=== PATIENT | female | born 1975 ===

== ENCOUNTER 2020-04-07 07:46 | Inpatient (IN) ==
[2020-04-07] MEDS ORDERED: guaiFENesin 100 MG/5 ML SYRUP PO PRN (12:28)
[2020-04-07] MEDS ORDERED: SUMAtriptan SUCCINATE 50 MG TABLET PO PRN (12:30)
[2020-04-07] MEDS ORDERED: MECLIZINE HCL 12.5 MG TABLET PO PRN (12:30)
[2020-04-07] MEDS ORDERED: HALOPERIDOL 1 MG TABLET PO PRN (12:30)
[2020-04-07] MEDS ORDERED: WARFARIN SODIUM 1 MG TABLET PO SCH ×2 (12:30→17:00)
[2020-04-07] MEDS ORDERED: ACETAMINOPHEN 325 MG TABLET PO PRN (12:30)
[2020-04-07] MEDS ORDERED: AZITHROMYCIN 500 MG in DEXTROSE 5 % IN WATER 250 ML IV ONE ×2 (12:36)
[2020-04-07] MEDS ORDERED: WARFARIN SODIUM 10 MG TABLET PO SCH ×2 (12:45→17:00)
--- NOTE | 2020-04-07 13:02 | HP ---
Chief Complaint - Chief Complaint Date of Service: 04/07/20 Time of Service: 12:45 Chief Complaint: I've had cough and shortness of breath for more than a week. History of Present Illness: 45-year-old female with past medical history of morbid obesity, hypertension, CAD, bipolar disorder, depression, migraine headache, bronchial asthma, multiple pulmonary embolisms, anxiety disorder, restless leg syndrome, and BPPV was transferred to our ER from [facility] for evaluation and treatment of COVID 19 infection and hypoxia. Patient reports that last she developed shortness of breath and chest pain that made it difficult to breathe a day or 2 later she developed a persistent productive cough and her shortness of breath worsened. Patient symptoms progressively got worse making activities of daily living difficult to carry out. She went to the ER at [facility] and was diagnosed with COVID-19 bronchitis and placed on oxygen due to hypoxia. Patient met criteria for admission however they had no beds available for her so she was transferred to our institution. She denies having any fever or chills and says the majority of her symptoms is respiratory in nature. Her other complaint was altered taste, she says food has not tasted same since becoming ill which is characteristic of his virus. Medical History (Last Updated 04/07/20 @ 10:51 by Felicity Castro RN) Acute costochondritis Anemia Anxiety disorder Asthma Dominguez's palsy Benign intracranial hypertension Benign paroxysmal positional vertigo Bipolar 1 disorder Borderline personality disorder CVA (cerebral vascular accident) Carpal tunnel syndrome decompressed Chronic knee pain Closed fracture of wrist 2014 Common migraine Depression with suicidal ideation Dizziness Foot fracture, right GERD (gastroesophageal reflux disease) Generalized weakness Headache History of transesophageal echocardiography (BLAZE) 06/02/2017 Hypercholesteremia Hypothyroid Incontinence Menstrual disorder Moderate major depression Morbid obesity Neurodermatitis Normal stress echocardiography with dobutamine PCP abuse Pap smear abnormality of cervix 03/16/2015 Pulmonary embolism Restless leg syndrome Right wrist fracture Sleep apnea Sleep disturbance, unspecified Somatization disorder Surgical History: Surgical History (Last Updated 04/07/20 @ 10:51 by Felicity Castro RN) H/O cystoscopy 10/22/2016 H/O dilation and curettage 07/12/2015 H/O esophagogastroduodenoscopy 2018 History of open reduction and internal fixation (ORIF) procedure 09/01/19 right toe Hx of cholecystectomy Hx of tonsillectomy S/P endometrial ablation 07/12/2015 Family History: Family History (Last Updated 04/07/20 @ 10:54 by Felicity Castro RN) Mother Myocardial infarction Patient's mother is Diabetes type 2, controlled Glaucoma Father Pancreatic cancer Patient's father is CVA (cerebral vascular accident) Sister Lupus Substance abuse Alcohol abuse Diabetes type 2, controlled Brother Substance abuse Alcohol abuse Peds Patient Hx - Developmental: No Pertinent Hx Peds Patient Hx - Medical: No Pertinent Hx Peds Patient Hx - Cardiac/Respiratory: No Pertinent Hx Peds Patient Hx - Surgical: No Surgical History Patient History - Cancer: No Hx of Cancer Review Of Systems (GEN) - Review of Systems Generalized/Overall Review: Present: Fatigue EENTM: Present: Other - Altered taste Respiratory: Present: Cough, Shortness of Breath Cardiac: Present: No Symptoms Reported Abdominal: Present: No Symptoms Reported Genitourinary: Present: No Symptoms Reported Musculoskeletal: Present: No Symptoms Reported Neurological: Present: No Symptoms Reported Skin: Present: No Symptoms Reported Endocrine: Present: No Symptoms Reported Allergies/Adverse Reactions: Allergies Allergy/AdvReac Type Severity Reaction Status Date / Time ibuprofen Allergy Severe throat Verified 04/07/20 09:29 swelling bee venom protein (honey bee) Allergy Intermediate Swelling Verified 04/07/20 10:55 (Other) penicillin G Allergy Intermediate rash & Verified 04/07/20 09:29 swelling pineapple Allergy Intermediate Swelling Verified 04/07/20 10:55 (Other) rice Allergy Intermediate Swelling Verified 04/07/20 10:55 (Other) rizatriptan [From Maxalt] Allergy Intermediate Swelling Verified 04/07/20 10:55 (Other) aripiprazole [From Abilify] AdvReac Severe can't move Verified 04/07/20 09:29 doxycycline AdvReac Intermediate nausea Verified 04/07/20 09:29 vomiting dizziness see things Home Medications: HOME MEDICATIONS Acetaminophen 650 mg PO TID PRN 04/07/20 [Last Taken Unknown] Amitriptyline HCl [Elavil] 50 mg PO DAILY 04/07/20 [Last Taken Unknown] Aspirin [Aspirin EC] 325 mg PO DAILY 04/07/20 [Last Taken Unknown] Atorvastatin Calcium 40 mg PO DAILY 04/07/20 [Last Taken Unknown] Cholecalciferol (Vitamin D3) [Vitamin D3] 50,000 unit PO Q7D 04/07/20 [Last Taken Unknown] Dexamethasone [Decadron] 6 mg PO DAILY 04/07/20 [Last Taken Unknown] Furosemide 20 mg PO DAILY 04/07/20 [Last Taken Unknown] Gabapentin 800 mg PO TID 04/07/20 [Last Taken Unknown] Haloperidol 1 mg PO TID PRN 04/07/20 [Last Taken Unknown] Isosorbide Mononitrate [Imdur] 15 mg PO DAILY 04/07/20 [Last Taken Unknown] Levothyroxine Sodium [Synthroid] 175 mcg PO DAILY 04/07/20 [Last Taken Unknown] Loratadine [Claritin] 10 mg PO DAILY 04/07/20 [Last Taken Unknown] Meclizine HCl [Antivert] 12.5 mg PO TID PRN 04/07/20 [Last Taken Unknown] Montelukast Sodium [Singulair] 10 mg PO DAILY 04/07/20 [Last Taken Unknown] Pantoprazole Sodium [Protonix] 40 mg PO DAILY 04/07/20 [Last Taken Unknown] QUEtiapine FUMARATE [Seroquel] 100 mg PO HS 04/07/20 [Last Taken Unknown] SUMAtriptan SUCCINATE [Imitrex] 50 - 100 mg PO Q2H PRN 04/07/20 [Last Taken Unknown] Temazepam 30 mg PO HS 04/07/20 [Last Taken Unknown] Topiramate [Topamax] 200 mg PO BID 04/07/20 [Last Taken Unknown] Venlafaxine HCl [Effexor Xr] 75 mg PO DAILY 04/07/20 [Last Taken Unknown] Venlafaxine HCl [Venlafaxine HCl ER] 150 mg PO DAILY 04/07/20 [Last Taken Unknown] Warfarin Sodium [Jantoven] 1 mg PO SUMOWETHSA 04/07/20 [Last Taken Unknown] Warfarin Sodium [Jantoven] 10 mg PO DAILY 04/07/20 [Last Taken Unknown] rOPINIRole HCL [Requip] 1 mg PO HS 04/07/20 [Last Taken Unknown] Exam - Exam Vital Signs: Vital Signs - Last Taken Temp 36.7 C 04/07/20 07:50 Pulse 64 04/07/20 07:50 Resp 20 04/07/20 07:50 BP 118/58 04/07/20 07:50 Pulse Ox 95 04/07/20 07:50 Constitutional: Present: Alert, Oriented x3, Cooperative, Well developed, Well nourished, No distress, Morbidly obese ENT Exam: Present: normal ENT inspection, hearing grossly normal, pharynx normal, TMs normal Eye Exam: bilateral eye: normal inspection, PERRL, EOMI Neck: Present: non-tender, full range of motion, supple, normal inspection, trachea midline Back Exam: Present: normal inspection, no CVA tenderness, no vertebral tenderness Breasts: Present: Exam deferred, Nontender Respiratory: Present: chest non-tender, lungs clear, normal breath sounds, no respiratory distress, no accessory muscle use Cardiovascular/Chest: Present: normal peripheral pulses, regular rate, rhythm, no chest tenderness, no edema, no gallop, no JVD, no murmur, no rub Peripheral Pulses: carotid (R): 3+, carotid (L): 3+, dorsalis-pedis (R): 3+, liseth salis-pedis (L): 3+ Abdomen: Present: Normal bowel sounds, soft, nontender, nondistended, no rebound tenderness, no hepatospenomegaly, no masses, obese /Rectal: Present: Exam deferred Extremity: Present: normal range of motion, non-tender, normal inspection, no pedal edema, no calf tenderness, normal capillary refill Skin Exam: Present: normal color, warm/dry, no cyanosis Lymphatic: Present: no adenopathy Neurologic: Present: pad cutter II-XII nml as tested, normal cerebellar test, no motor/sensory deficits, alert, normal mood/affect, oriented x 3 Appearance: Present: appropriate appearance, appropriate insight, neat, no m evelyne impairment Eye contact: Present: cooperative, good eye contact, normal speech Thoughts: Present: normal thought pattern, no apparent hallucination Assessment/Plan - Narrative Narrative: Patient was evaluated and medical chart was reviewed and decision to admit to [facility] floor for diagnosis of COVID-19 infection and hypoxia was made. Patient's shortness of breath has resolved and her oxygen saturation has improved with supplemental oxygen. We will attempt to wean her off the O2 to see how she does. Her breath sounds were clear so it appears that her infection is mostly in the upper airways. We will continue the dexamethasone that the patient was previously started on although I am not sure if this was started at [facility] or by another outside provider. We will also treat her with azithromycin. She has not had any fever but acetaminophen was ordered on a as needed basis just in case. We will keep the patient on telemetry monitoring and watch her closely. - Assessment/Plan (1) COVID-19 virus infection Problem: Acute (2) Viral bronchitis Problem: Acute (3) Dyspnea and respiratory abnormalities Problem: Acute (4) Hypoxia Problem: Acute (5) Morbid obesity Problem: Chronic (6) Bipolar disorder Problem: Chronic (7) Anxiety Problem: Chronic (8) Hypothyroidism (acquired) Problem: Chronic (9) Cerebrovascular accident, old Problem: Acute (10) Bronchial asthma Problem: Chronic
[2020-04-07] MEDS ORDERED: AZITHROMYCIN 250 MG TABLET PO ONE (13:15)
[2020-04-07] MEDS ORDERED: DEXAMETHASONE 2 MG TABLET PO SCH (13:30)
[2020-04-07] MEDS: PANTOPRAZOLE SODIUM 40 MG TABLET.EC PO SCH (13:47)
[2020-04-07] MEDS: LEVOTHYROXINE SODIUM 175 MCG TABLET PO SCH (13:47)
[2020-04-07] MEDS: GABAPENTIN 400 MG CAPSULE PO SCH ×2 (13:47→17:38)
[2020-04-07] MEDS: VENLAFAXINE HCL 37.5 MG CAP.SR.24H PO SCH (13:48)
[2020-04-07] MEDS: ASPIRIN 325 MG TABLET.DR PO SCH (13:49)
[2020-04-07] MEDS: ROSUVASTATIN CALCIUM 20 MG TABLET PO SCH (13:49)
[2020-04-07] MEDS: MONTELUKAST SODIUM 10 MG TABLET PO SCH (13:50)
[2020-04-07] MEDS: LORATADINE 10 MG TABLET PO SCH (13:50)
[2020-04-07] MEDS: AMITRIPTYLINE HCL 50 MG TABLET PO SCH (13:51)
[2020-04-07] MEDS: ISOSORBIDE MONONITRATE 30 MG TAB.SR.24H PO SCH (13:54)
[2020-04-07] MEDS: VENLAFAXINE HCL 150 MG CAP.SR.24H PO SCH (13:54)
[2020-04-07] MEDS: FUROSEMIDE 20 MG TABLET PO SCH (13:54)
[2020-04-07] MEDS: TOPIRAMATE 50 MG TABLET PO SCH ×2 (13:55→20:28)
[2020-04-07] MEDS: predniSONE 20 MG TABLET PO SCH (13:56)
[2020-04-07 15:07] LABS: Prothrombin Time (Patient) 29.5 Seconds (9.1-10.7)
[2020-04-07 15:08] LABS: INR 3.11 INR (0.92-1.08)
[2020-04-07] MEDS: QUEtiapine FUMARATE 100 MG TABLET PO SCH (20:28)
[2020-04-07] MEDS: rOPINIRole HCL 1 MG TABLET PO SCH (20:28)
[2020-04-07] MEDS: TEMAZEPAM 15 MG CAPSULE PO SCH (23:20)
[2020-04-07] MEDS: lamoTRIgine 100 MG TABLET PO SCH (23:20)
--- NOTE | 2020-04-08 06:25 | PN ---
Subjective - Date and Time Seen Date: 04/08/20 Time: 06:21 Subjective Narrative: I still have a cough and trouble taking in deep breaths. Objective Objective Narrative: 45-year-old female admitted for COVID-19 infection and respiratory distress was evaluated at bedside and was found to be afebrile and in no acute distress. Patient has shown some clinical improvement since arriving, her breathing is less labored and she is maintaining O2 sat with minimal amounts of oxygen. Her only complaint at this moment is minimal chest congestion and a persistent cough. Auscultation of the patient's lungs still reveal expiratory wheezing that is worse in her upper lung field therefore she is in need of more IV steroids. So we will keep the patient for an additional day for additional treatment and to optimize her breathing. We will continue to monitor her closely. - Review of Systems Generalized/Overall Review: Reports: No Symptoms Reported EENTM: Reports: No Symptoms Reported Respiratory: Reports: Cough, Shortness of Breath, Wheezing Cardiac: Reports: No Symptoms Reported Abdominal: Reports: No Symptoms Reported Genitourinary Symptoms: Reports: No Symptoms Reported Musculoskeletal Complaints: Reports: No Symptoms Reported Neurological: Reports: No Symptoms Reported Skin: Reports: No Symptoms Reported Endocrine: Reports: No Symptoms Reported - Vitals Vitals: Last Vital Signs Temp 36.5 C 04/07/20 23:25 Pulse 59 L 04/08/20 02:00 Resp 20 04/07/20 23:25 BP 120/54 04/07/20 23:25 Pulse Ox 98 04/07/20 23:25 - Abnormal Lab Findings Abnormal Lab Findings: Abnormal Lab Results 04/07/20 Range/Units 14:52 PT 29.5 H (9.1-10.7) Seconds INR (Anticoag Therapy) 3.11 H (0.92-1.08) INR - Exam Constitutional: Present: Alert, Oriented x3, Cooperative, Well developed, Well nourished, No distress, Morbidly obese ENT Exam: Present: normal ENT inspection, hearing grossly normal, pharynx normal, TMs normal Neck: Present: non-tender, full range of motion, supple, normal inspection, trachea midline Breasts: Present: Exam deferred Respiratory: Present: wheezing, expiration (prolonged) Cardiovascular/Chest: Present: normal peripheral pulses, regular rate, rhythm, no chest tenderness, no edema, no gallop, no JVD, no murmur, no rub Abdomen: Present: Normal bowel sounds, soft, nontender, nondistended, no rebound tenderness, no hepatospenomegaly, no masses, obese /Rectal: Present: Exam deferred Extremity: Present: normal range of motion, non-tender, normal inspection, no pedal edema, no calf tenderness, normal capillary refill, pelvis stable Skin Exam: Present: normal color, warm/dry, no cyanosis Lymphatic: Present: no adenopathy Neurologic: Present: sprayer auto [employer] II-XII nml as tested, normal cerebellar test, no motor/sensory deficits, alert, normal mood/affect, oriented x 3 Appearance: Present: appropriate appearance, appropriate insight, neat, no memory impairment Eye contact: Present: cooperative, good eye contact, normal speech Thoughts: Present: normal thought pattern, no apparent hallucination Assessment/Plan Plan Narrative: We will keep the patient for an additional day to treat her with additional doses of steroids and IV antibiotics. Will reevaluate her in the morning. - Problems/Diagnosis (1) COVID-19 virus infection Problem: Acute (2) Viral bronchitis Problem: Acute (3) Dyspnea and respiratory abnormalities Problem: Acute (4) Hypoxia Problem: Acute (5) Morbid obesity Problem: Chronic (6) Bipolar disorder Problem: Chronic (7) Anxiety Problem: Chronic (8) Hypothyroidism (acquired) Problem: Chronic (9) Cerebrovascular accident, old Problem: Acute (10) Bronchial asthma Problem: Chronic (11) Wheezing on auscultation Problem: Acute
[2020-04-08 07:14] LABS: Hematocrit 48.9 % (37.0-47.0); Hemoglobin 15.6 gm/dL (12.5-16.0); Mean Cell Volume 94.4 fl (78-100); Mean Corpuscular Hemoglobin 30.1 pg (27-31); Mean Corpuscular Hgb Conc 31.9 g/dl (32-36); Mean Platelet Volume 9.2 fl (8-12.5); Neutrophil # 6.1 K/mm3 (1.3-6.0); Neutrophil % 61.6 % (42-75.0); Platelet Count 242 K/mm3 (150-450); Red Blood Count 5.18 M/mm3 (4.2-5.4); Red Cell Distribution Width 14.3 % (11.5-14.0); White Blood Count 9.9 K/mm3 (4.0-10.5)
[2020-04-08 07:23] LABS: INR 2.97 INR (0.92-1.08); Prothrombin Time (Patient) 28.2 Seconds (9.1-10.7)
[2020-04-08 07:27] LABS: Albumin * 3.1 gm/dl (3.4-5.0); Anion Gap 11.7 mmol/L (6.8-13.8); BUN/Creatinine Ratio 18.5 (9.0-21.6); Bilirubin, Total 0.3 mg/dL (0.0-1.1); Ca. Corrected For Albumin 10.6 mg/dL (8.4-10.2); Calcium * 10.2 mg/dL (7.9-10.9); Carbon Dioxide 25.1 mmol/L (24-32.6); Potassium 3.8 mmol/L (3.4-4.6); Total Protein 7.5 gm/dL (6.2-8.2)
[2020-04-08] MEDS ORDERED: predniSONE 20 MG TABLET PO SCH (09:00)
[2020-04-08] MEDS ORDERED: LAMOTRIGINE 200 MG PO SCH (09:00)
[2020-04-08] MEDS: GABAPENTIN 400 MG CAPSULE PO SCH ×3 (09:29→17:31)
[2020-04-08] MEDS: predniSONE 20 MG TABLET PO SCH (09:30)
[2020-04-08] MEDS: LEVOTHYROXINE SODIUM 175 MCG TABLET PO SCH (09:31)
[2020-04-08] MEDS: PANTOPRAZOLE SODIUM 40 MG TABLET.EC PO SCH (09:31)
[2020-04-08] MEDS: MONTELUKAST SODIUM 10 MG TABLET PO SCH (09:31)
[2020-04-08] MEDS: TOPIRAMATE 50 MG TABLET PO SCH ×2 (09:32→20:37)
[2020-04-08] MEDS: AZITHROMYCIN 250 MG TABLET PO SCH (09:33)
[2020-04-08] MEDS: ACETAMINOPHEN 325 MG TABLET PO PRN ×2 (09:40→17:31)
[2020-04-08] MEDS: ASPIRIN 325 MG TABLET.DR PO SCH (11:11)
[2020-04-08] MEDS: FUROSEMIDE 20 MG TABLET PO SCH (11:11)
[2020-04-08] MEDS: AMITRIPTYLINE HCL 50 MG TABLET PO SCH (11:11)
[2020-04-08] MEDS: VENLAFAXINE HCL 150 MG CAP.SR.24H PO SCH (11:12)
[2020-04-08] MEDS: LORATADINE 10 MG TABLET PO SCH (11:12)
[2020-04-08] MEDS: ROSUVASTATIN CALCIUM 20 MG TABLET PO SCH (11:12)
[2020-04-08] MEDS: lamoTRIgine 100 MG TABLET PO SCH ×2 (11:12→20:35)
[2020-04-08] MEDS: VENLAFAXINE HCL 37.5 MG CAP.SR.24H PO SCH (11:12)
[2020-04-08] MEDS: ISOSORBIDE MONONITRATE 30 MG TAB.SR.24H PO SCH (11:12)
[2020-04-08] MEDS: IPRATROPIUM/ALBUTEROL SULFATE 120 PUFF INHALER IH SCH ×4 (11:15→20:13)
[2020-04-08] MEDS: rOPINIRole HCL 1 MG TABLET PO SCH (20:35)
[2020-04-08] MEDS: TEMAZEPAM 15 MG CAPSULE PO SCH (20:36)
[2020-04-08] MEDS: QUEtiapine FUMARATE 100 MG TABLET PO SCH (20:37)
[2020-04-09] MEDS: IPRATROPIUM/ALBUTEROL SULFATE 120 PUFF INHALER IH SCH ×4 (01:57→12:24)
[2020-04-09 07:16] LABS: Prothrombin Time (Patient) 27.2 Seconds (9.1-10.7)
[2020-04-09 07:19] LABS: INR 2.86 INR (0.92-1.08)
[2020-04-09] MEDS: VENLAFAXINE HCL 150 MG CAP.SR.24H PO SCH (08:13)
[2020-04-09] MEDS: VENLAFAXINE HCL 37.5 MG CAP.SR.24H PO SCH (08:13)
[2020-04-09] MEDS: ROSUVASTATIN CALCIUM 20 MG TABLET PO SCH (08:13)
[2020-04-09] MEDS: GABAPENTIN 400 MG CAPSULE PO SCH ×2 (08:13→12:24)
[2020-04-09] MEDS: LEVOTHYROXINE SODIUM 175 MCG TABLET PO SCH (08:13)
[2020-04-09] MEDS: ISOSORBIDE MONONITRATE 30 MG TAB.SR.24H PO SCH (08:13)
[2020-04-09] MEDS: PANTOPRAZOLE SODIUM 40 MG TABLET.EC PO SCH (08:13)
[2020-04-09] MEDS: MONTELUKAST SODIUM 10 MG TABLET PO SCH (08:13)
[2020-04-09] MEDS: predniSONE 20 MG TABLET PO SCH (08:13)
[2020-04-09] MEDS: LORATADINE 10 MG TABLET PO SCH (08:14)
[2020-04-09] MEDS: FUROSEMIDE 20 MG TABLET PO SCH (08:14)
[2020-04-09] MEDS: lamoTRIgine 100 MG TABLET PO SCH (08:14)
[2020-04-09] MEDS: AZITHROMYCIN 250 MG TABLET PO SCH (08:14)
[2020-04-09] MEDS: ASPIRIN 325 MG TABLET.DR PO SCH (08:14)
[2020-04-09] MEDS: AMITRIPTYLINE HCL 50 MG TABLET PO SCH (08:14)
[2020-04-09] MEDS: TOPIRAMATE 50 MG TABLET PO SCH (08:15)
--- NOTE | 2020-04-09 09:33 | DS ---
(1) COVID-19 virus infection Problem: Acute (2) Viral bronchitis Problem: Acute (3) Dyspnea and respiratory abnormalities Problem: Resolved (4) Hypoxia Problem: Acute (5) Morbid obesity Problem: Chronic (6) Bipolar disorder Problem: Chronic (7) Anxiety Problem: Chronic (8) Hypothyroidism (acquired) Problem: Chronic (9) Cerebrovascular accident, old Problem: Acute (10) Bronchial asthma Problem: Chronic (11) Wheezing on auscultation Problem: Resolved Date of Discharge:: 04/09/20 Hospital Course: 45-year-old female admitted for COVID-19 infection, bronchial asthma exacerbation, and hypoxia was evaluated at bedside this morning was found to be afebrile and in no acute distress. During the hospitalization patient was treated with antibiotics and oral steroids which has improved her symptoms. This morning she reports great improvement in her breathing and her auscultation was clear. The patient also maintains stable vitals and has not had any episodes of fever. Given these findings decision to discharge patient home with remaining days of p.o. antibiotics and p.o. steroids was made. She was also instructed to going to quarantine for 5 additional days and when she is completely asymptomatic. Patient was also instructed to follow-up with her PCP after she completes the quarantine. Procedures Performed: none Results and Findings: Lab Pending Results 04/07/20 14:52: PT 29.5 H, INR (Anticoag Therapy) 3.11 H 04/08/20 06:49: WBC 9.9, RBC 5.18, Hgb 15.6, Hct 48.9 H, MCV 94.4, MCH 30.1, MCHC 31.9 L, RDW 14.3 H, Plt Count 242, MPV 9.2, Immature Gran % (Auto) 0.80 H, Immature Gran # (Auto) 0.08 H, Neutrophils % 61.6, Lymphocytes % 29.7, Monocytes % 7.6, Eosinophils % 0.1, Basophils % 0.2, Nucleated RBC % 0.0, Neutrophils # 6.1 H, Lymphocytes # 2.94, Monocytes # 0.8, Eosinophils # 0.0, Absolute Basophils 0.0 04/08/20 06:49: Sodium 140, Plasma Sodium 140, Potassium 3.8, Chloride 107 H, Carbon Dioxide 25.1, Anion Gap 11.7, BUN 23, Creatinine 1.24, Est GFR (Non-Af Amer) 49 L, BUN/Creatinine Ratio 18.5, Random Glucose 92, Calcium 10.2, Calcium Adj for Albumin 10.6 H, Total Bilirubin 0.3, AST 23, ALT 39, Alkaline Ph osphatase 105, Total Protein 7.5, Albumin 3.1 L 04/08/20 07:05: PT 28.2 H, INR (Anticoag Therapy) 2.97 H 04/09/20 07:06: PT 27.2 H, INR (Anticoag Therapy) 2.86 H Discharge Location: Home Disposition: Home self-care Condition: Good Face to Face Encounter completed per [facility] Guidelines: No Discharge Activity: Activity as tolerated Discharge Diet: Low fat/chol Prescriptions (Any new or edited meds): Azithromycin [Zithromax] 250 mg PO DAILY 3 Days #3 tablet Complete Home Medications List: Complete Home Medication List: Acetaminophen 650 mg PO TID PRN 04/07/20 Amitriptyline HCl [Elavil] 50 mg PO DAILY 04/07/20 Aspirin [Aspirin EC] 325 mg PO DAILY 04/07/20 Atorvastatin Calcium 40 mg PO DAILY 04/07/20 Cholecalciferol (Vitamin D3) [Vitamin D3] 50,000 unit PO Q7D 04/07/20 Dexamethasone [Decadron] 6 mg PO DAILY 04/07/20 Furosemide 20 mg PO DAILY 04/07/20 Gabapentin 800 mg PO TID 04/07/20 Haloperidol 1 mg PO TID PRN 04/07/20 Isosorbide Mononitrate [Imdur] 15 mg PO DAILY 04/07/20 Levothyroxine Sodium [Synthroid] 175 mcg PO DAILY 04/07/20 Loratadine [Claritin] 10 mg PO DAILY 04/07/20 Meclizine HCl [Antivert] 12.5 mg PO TID PRN 04/07/20 Montelukast Sodium [Singulair] 10 mg PO DAILY 04/07/20 Pantoprazole Sodium [Protonix] 40 mg PO DAILY 04/07/20 QUEtiapine FUMARATE [Seroquel] 100 mg PO HS 04/07/20 SUMAtriptan SUCCINATE [Imitrex] 50 - 100 mg PO Q2H PRN 04/07/20 Temazepam 30 mg PO HS 04/07/20 Topiramate [Topamax] 200 mg PO BID 04/07/20 Venlafaxine HCl [Effexor Xr] 75 mg PO DAILY 04/07/20 Venlafaxine HCl [Venlafaxine HCl ER] 150 mg PO DAILY 04/07/20 Warfarin Sodium [Jantoven] 1 mg PO SUMOWETHSA 04/07/20 Warfarin Sodium [Jantoven] 10 mg PO DAILY 04/07/20 lamoTRIgine [Lamictal] 200 mg PO BID 04/07/20 rOPINIRole HCL [Requip] 1 mg PO HS 04/07/20 Amitriptyline HCl [Elavil] 50 mg PO DAILY tablet 04/09/20 Azithromycin [Zithromax] 250 mg PO DAILY 3 Days #3 tablet 04/09/20 Prednisone 10 mg PO DAILY 3 Days #3 tab 04/09/20 Warfarin Sodium [Coumadin] 1 mg PO [id number] tablet 04/09/20 Forms: Patient Portal Registration
[2020-04-09 13:46] VITALS: BP 124/58
[2020-04-12] MEDS ORDERED: CHOLECALCIFEROL 50000 UNIT PO SCH (09:00)
== END 2020-04-09 15:00 | disposition home or self-care (01) | DRG 178 ==
LOC: MS 07:46
PROVIDERS: ADMIT Family Medicine; ATTEND Family Medicine
CPT/HCPCS: 36415; 80053; 85025; 85610